=== PATIENT | female | born 2000 | race African-American/Black ===

== ENCOUNTER 2023-02-23 13:01 | Emergency (ER) | payer OTHER ==
[2023-02-23 13:15] VITALS: TEMP 97.9; BMI 33.5
[2023-02-23] MEDS ORDERED: ACETAMINOPHEN 1000 MG/100 ML BAG IVPB ONE (13:25)
[2023-02-23] MEDS ORDERED: SODIUM CHLORIDE 0.9% 500 ML INFUS.BAG IV ONE (13:25)
[2023-02-23] MEDS ORDERED: METOCLOPRAMIDE HCL INJECTION 10 MG/2 ML VIAL IVPUSH ONE (13:25)
[2023-02-23] MEDS ORDERED: ACETAMINOPHEN INJECTION 100 ML IVPB ONE (13:40)
[2023-02-23] MEDS ORDERED: METOCLOPRAMIDE HCL INJECTION 10 MG/2 ML VIAL ONE (13:40)
[2023-02-23 14:14] LABS: PH,URINE 5.5 (5.0-8.0); URINE APPEARANCE CLEAR; URINE BILIRUBIN NEGATIVE (NEGATIVE); URINE COLOR YELLOW; URINE GLUCOSE (UA) NEGATIVE (NEGATIVE); URINE KETONE 2+ (NEGATIVE); URINE LEUK ESTERASE NEGATIVE (NEGATIVE); URINE NITRITE NEGATIVE (NEGATIVE); URINE PROTEIN NEGATIVE (NEGATIVE); URINE UROBILINOGEN 0.2 mg/dL (0.2-1.0)
[2023-02-23 14:15] LABS: BASO % 0.8 % (0-2.0); EOS % 0.9 % (0-4.5); HEMATOCRIT 35.3 % (32.4-45.2); HEMOGLOBIN 11.3 GM/dL (10.7-15.3); MCH 25.8 pg (25.7-33.7); MEAN CELL VOLUME 80.5 fl (80-96); MEAN PLT VOLUME 9.9 fl (7.5-11.1); MONO % 4.2 % (3.8-10.2); NEUT % 69.1 % (42.8-82.8); PLATELET COUNT 217 10^3/uL (134-434); RBC 4.38 M/mm3 (3.60-5.2); RDW 14.6 % (11.6-15.6); WHITE BLOOD COUNT 10.6 K/mm3 (4.0-10.0)
[2023-02-23 14:35] LABS: POTASSIUM 4.8 mmol/L (3.5-5.1)
[2023-02-23 14:38] LABS: CALCIUM 9.7 mg/dL (8.5-10.1)
[2023-02-23 14:39] LABS: ALBUMIN 3.2 g/dl (3.4-5.0); BLOOD UREA NITROGEN 7.9 mg/dL (7-18); MAGNESIUM 1.8 mg/dL (1.8-2.4)
[2023-02-23 14:43] LABS: BILIRUBIN,TOTAL 0.3 mg/dL (0.2-1); CREATININE 0.4 mg/dL (0.55-1.3)
[2023-02-23 16:20] VITALS: BP 112/65; PULSE 81; RESP 19
== END 2023-02-23 16:40 | disposition home or self-care (01) ==
LOC: JER 13:01
PROC: 3E033NZ Introduction of Analgesics, Hypnotics, Sedatives into Peripheral Vein, Percutaneous Approach (ICD-10-PCS; principal; 2023-02-23)
PROC: 3E033GC Introduction of Other Therapeutic Substance into Peripheral Vein, Percutaneous Approach (ICD-10-PCS; 2023-02-23)
DX: O21.9 Vomiting of pregnancy, unspecified (principal); O99.891 Other specified diseases and conditions complicating pregnancy; R51.9 Headache, unspecified; Z3A.16 16 weeks gestation of pregnancy; Z20.822 Contact with and (suspected) exposure to COVID-19
CPT/HCPCS: 0241U-QW; 36415; 70450-TC; 80053; 81003; 83735; 85025; 87086; 93005; 93010; 99285-25

== ENCOUNTER 2023-03-10 10:21 | Emergency (ER) | payer OTHER ==
[2023-03-10 10:26] VITALS: BMI 33.5
[2023-03-10 11:44] LABS: BASO % 0.2 % (0-2.0); EOS % 1.2 % (0-4.5); HCG,QUALITATIVE URINE Positive; HEMOGLOBIN 11.4 GM/dL (10.7-15.3); LYMPH % 28.7 % (8-40); MCH 25.8 pg (25.7-33.7); MCHC 32.5 g/dl (32.0-36.0); MEAN CELL VOLUME 79.3 fl (80-96); MEAN PLT VOLUME 9.4 fl (7.5-11.1); NEUT % 63.9 % (42.8-82.8); PLATELET COUNT 214 10^3/uL (134-434); RBC 4.42 M/mm3 (3.60-5.2); RDW 14.7 % (11.6-15.6); URINE APPEARANCE CLEAR; URINE BILIRUBIN NEGATIVE (NEGATIVE); URINE COLOR YELLOW; URINE GLUCOSE (UA) NEGATIVE (NEGATIVE); URINE KETONE TRACE (NEGATIVE); URINE LEUK ESTERASE NEGATIVE (NEGATIVE); URINE NITRITE NEGATIVE (NEGATIVE); URINE PROTEIN NEGATIVE (NEGATIVE); WHITE BLOOD COUNT 7.3 K/mm3 (4.0-10.0)
[2023-03-10 12:14] LABS: POTASSIUM 3.7 mmol/L (3.5-5.1)
[2023-03-10 12:17] LABS: ALBUMIN 2.9 g/dl (3.4-5.0); BLOOD UREA NITROGEN 9.5 mg/dL (7-18)
[2023-03-10 12:20] LABS: CREATININE 0.5 mg/dL (0.55-1.3)
[2023-03-10 12:21] LABS: BILIRUBIN,TOTAL 0.2 mg/dL (0.2-1); TOT PROT 6.3 g/dl (6.4-8.2)
[2023-03-10 13:29] VITALS: BP 123/76; PULSE 96; RESP 18; TEMP 98.9
[2023-03-10] MEDS ORDERED: SODIUM CHLORIDE 0.9% 500 ML INFUS.BAG IV ONE (13:31)
== END 2023-03-10 15:24 | disposition home or self-care (01) ==
LOC: JER 10:21
DX: O21.9 Vomiting of pregnancy, unspecified (principal); O99.892 Other specified diseases and conditions complicating childbirth; R19.7 Diarrhea, unspecified; R51.9 Headache, unspecified; Z3A.17 17 weeks gestation of pregnancy
CPT/HCPCS: 36415; 80053; 81003; 83690; 84703; 85025; 87086; 99283-25

== ENCOUNTER 2023-03-29 11:48 | Emergency (ER) | payer OTHER ==
[2023-03-29] MEDS ORDERED: LACTATED RINGERS SOLUTION 1000 ML INFUS.BAG IV ONE (12:45)
[2023-03-29 13:22] VITALS: BMI 33.8
[2023-03-29 13:24] LABS: URINE APPEARANCE CLEAR; URINE BILIRUBIN NEGATIVE (NEGATIVE); URINE COLOR YELLOW; URINE GLUCOSE (UA) NEGATIVE (NEGATIVE); URINE KETONE 2+ (NEGATIVE); URINE LEUK ESTERASE NEGATIVE (NEGATIVE); URINE NITRITE NEGATIVE (NEGATIVE); URINE PROTEIN NEGATIVE (NEGATIVE)
[2023-03-29] MEDS ORDERED: ACETAMINOPHEN 1000 MG/100 ML BAG IVPB ONE (13:24)
[2023-03-29 13:33] LABS: HCG,QUALITATIVE URINE Positive
[2023-03-29] MEDS ORDERED: ACETAMINOPHEN INJECTION 100 ML IVPB ONE (13:52)
[2023-03-29 14:02] LABS: BASO % 1.3 % (0-2.0); EOS % 0.9 % (0-4.5); HEMATOCRIT 35.8 % (32.4-45.2); HEMOGLOBIN 11.1 GM/dL (10.7-15.3); LYMPH % 24.8 % (8-40); MCH 25.5 pg (25.7-33.7); MCHC 31.1 g/dl (32.0-36.0); MEAN CELL VOLUME 82.1 fl (80-96); MEAN PLT VOLUME 10.1 fl (7.5-11.1); MONO % 5.6 % (3.8-10.2); NEUT % 67.4 % (42.8-82.8); PLATELET COUNT 214 10^3/uL (134-434); RBC 4.35 M/mm3 (3.60-5.2); RDW 14.9 % (11.6-15.6); WHITE BLOOD COUNT 10.4 K/mm3 (4.0-10.0)
[2023-03-29 14:08] LABS: INR 1.01 (0.83-1.09); PROTHROMBIN TIME (PATIENT) 11.7 SEC (9.7-13.0)
[2023-03-29 14:11] LABS: ACTIVATED PTT 29.1 SECONDS (25.2-36.5)
[2023-03-29 14:25] LABS: POTASSIUM 4.1 mmol/L (3.5-5.1)
[2023-03-29 14:28] LABS: CALCIUM 9.6 mg/dL (8.5-10.1)
[2023-03-29 14:29] LABS: BLOOD UREA NITROGEN 9.6 mg/dL (7-18)
[2023-03-29 14:32] LABS: CREATININE 0.5 mg/dL (0.55-1.3)
[2023-03-29 14:33] LABS: BILIRUBIN,TOTAL 0.6 mg/dL (0.2-1); TOT PROT 6.5 g/dl (6.4-8.2)
[2023-03-29 18:24] VITALS: BP 116/61; PULSE 88; RESP 18; TEMP 99.2
== END 2023-03-29 18:52 | disposition home or self-care (01) ==
LOC: JER 11:48
PROC: 3E033NZ Introduction of Analgesics, Hypnotics, Sedatives into Peripheral Vein, Percutaneous Approach (ICD-10-PCS; principal; 2023-03-29)
DX: O26.892 Other specified pregnancy related conditions, second trimester (principal); R10.9 Unspecified abdominal pain; O21.9 Vomiting of pregnancy, unspecified; Z3A.21 21 weeks gestation of pregnancy
CPT/HCPCS: 36415; 76705-TC; 76815; 80053; 81003; 83690; 84703; 85025; 85610; 85730; 86850; 86900; 86901; 87086; 99284-25

== ENCOUNTER 2023-07-21 02:40 | Inpatient (IN) | payer OTHER ==
[2023-07-21] MEDS: ELECTROLYTE-148 SOLN 500 ML IV ONE (04:15)
[2023-07-21 04:52] LABS: EPI CELLS 11 /uL (0-25.1); HYALINE CASTS 0 /uL (0-3.1); URINE APPEARANCE CLEAR; URINE BACTERIA 45 /uL (0-1359); URINE BILIRUBIN NEGATIVE (NEGATIVE); URINE COLOR YELLOW; URINE GLUCOSE (UA) NEGATIVE (NEGATIVE); URINE KETONE NEGATIVE (NEGATIVE); URINE LEUK ESTERASE NEGATIVE (NEGATIVE); URINE NITRITE NEGATIVE (NEGATIVE); URINE PROTEIN 2+ (NEGATIVE); URINE RBC 5 /uL (0-23.9); URINE UROBILINOGEN 0.2 mg/dL (0.2-1.0); URINE WBC 5 /uL (0-25.8)
[2023-07-21] MEDS ORDERED: ELECTROLYTE-148 SOLN 500 ML IV SCH ×2 (05:15→06:15)
[2023-07-21 07:04] LABS: RETICULOCYTES 1.91 % (0.5-1.5)
[2023-07-21 07:27] LABS: URIC ACID 5.7 mg/dL (2.6-7.2)
[2023-07-21] MEDS: ELECTROLYTE-148 SOLN 1,000 ML IV SCH (09:40)
[2023-07-21 10:58] LABS: BASO % 0.3 % (0-2.0); EOS % 1.1 % (0-4.5); HEMATOCRIT 32.6 % (32.4-45.2); HEMOGLOBIN 10.6 GM/dL (10.7-15.3); LYMPH % 23.3 % (8-40); MCHC 32.6 g/dl (32.0-36.0); MEAN CELL VOLUME 82.8 fl (80-96); MEAN PLT VOLUME 9.6 fl (7.5-11.1); MONO % 6.3 % (3.8-10.2); PLATELET COUNT 158 10^3/uL (134-434); RBC 3.94 M/mm3 (3.60-5.2); RDW 15.5 % (11.6-15.6); WHITE BLOOD COUNT 8.2 K/mm3 (4.0-10.0)
[2023-07-21 11:06] LABS: INR 0.95 (0.83-1.09)
[2023-07-21 11:09] LABS: ACTIVATED PTT 26.6 SECONDS (25.2-36.5)
[2023-07-21 11:20] LABS: POTASSIUM 4.1 mmol/L (3.5-5.1)
[2023-07-21 11:22] LABS: BLOOD UREA NITROGEN 9.4 mg/dL (7-18); CALCIUM 9.8 mg/dL (8.5-10.1)
[2023-07-21 11:25] LABS: CREATININE 0.6 mg/dL (0.55-1.3)
[2023-07-21] MEDS: DINOPROSTONE 10 MG VAGINAL SUPPOSITORY VG ONE (12:40)
[2023-07-21 15:45] VITALS: BMI 38.5
[2023-07-21 18:32] LABS: HIV INTERPRETATION NEGATIVE (NEGATIVE)
[2023-07-22] MEDS: OXYTOCIN 30 UNITS in 0.9% NS 30 UNIT/500 ML INFUS.BAG IVPB SCH (01:45)
[2023-07-22] MEDS ORDERED: PROMETHAZINE HCL 25 MG/1 ML VIAL ONE (19:44)
[2023-07-22] MEDS ORDERED: BUTORPHANOL TARTRATE 2 MG/ML VIAL ONE (19:44)
[2023-07-22] MEDS: BUTORPHANOL TARTRATE 1 MG/ML VIAL IVPUSH PRN (19:50)
[2023-07-22] MEDS: PROMETHAZINE HCL 25 MG/1 ML VIAL IVPB PRN (19:50)
[2023-07-22] MEDS ORDERED: FENTANYL/BUPIVACAINE/NS/PF - PCEA - 50 ML DISP.SYRIN EP ONE (23:21)
[2023-07-23] MEDS: FENTANYL/BUPIVACAINE/NS/PF - PCEA - 50 ML DISP.SYRIN EP SCH
[2023-07-23] MEDS ORDERED: NALOXONE HCL 0.4 MG/ML VIAL IVPUSH PRN (00:30)
[2023-07-23] MEDS ORDERED: LIDOCAINE HCL 1% PRESERVATIVE FREE - 30ML VIAL ONE (03:13)
[2023-07-23] MEDS ORDERED: OXYTOCIN 20 UNITS in 0.9% NS 20 UNIT/1,000 ML INFUS.BAG IV ONE (03:13)
[2023-07-23] MEDS: OXYTOCIN 20 UNITS in 0.9% NS 20 UNIT/1,000 ML INFUS.BAG IV SCH (03:45)
[2023-07-23] MEDS ORDERED: LABETALOL HCL 200 MG TABLET (FP) ONE ×2 (04:33→12:33)
[2023-07-23] MEDS: LABETALOL HCL 200 MG TABLET (FP) PO SCH (04:35)
[2023-07-23 04:45] LABS: CORD HCO3 21.4 mmHg (20-29); CORD PCO2 40.2 mmHg (30-78); CORD pH 7.344 (7.14-7.44)
[2023-07-23 04:46] LABS: CORD BASE EXCESS -6.7 mmol/L (0-2); CORD HCO3 22.5 mmHg (20-29); CORD PCO2 61.2 mmHg (30-78); CORD pH 7.184 (7.14-7.44)
[2023-07-23] MEDS ORDERED: WITCH HAZEL 50% (TUCKS) 40 PAD/JAR PAD TP PRN (04:55)
[2023-07-23] MEDS ORDERED: BISACODYL 10 MG SUPP.RECT RC PRN (04:55)
[2023-07-23] MEDS ORDERED: BENZOCAINE 28 GM HEMORRHOIDAL OINTMENT TP PRN (04:55)
[2023-07-23] MEDS ORDERED: ACETAMINOPHEN 325 MG TABLET (FP) PO PRN (04:55)
[2023-07-23] MEDS ORDERED: METHYLERGONOVINE MALEATE 0.2 MG/1 ML AMP IM PRN (04:55)
[2023-07-23] MEDS ORDERED: BENZOCAINE 20% 57 GM BOTTLE TP PRN (04:55)
[2023-07-23] MEDS ORDERED: oxyCODONE HCL 5 MG TABLET PO PRN (04:55)
[2023-07-23] MEDS ORDERED: MAGNESIUM 4GM/H20 - 4 GM/100 ML IVPB IVPB ONE (06:06)
[2023-07-23] MEDS: MAGNESIUM 4GM/H20 - 4 GM/100 ML IVPB IVPB ONE (06:10)
[2023-07-23] MEDS: MAGNESIUM SULFATE 20GM/500ML - 20 GM/500 ML INFUS.BAG IVPB SCH (06:40)
[2023-07-23] MEDS ORDERED: MAGNESIUM SULFATE 20GM/500ML - 20 GM/500 ML INFUS.BAG ONE (06:41)
[2023-07-23] MEDS: FERROUS SO4 325 MG TABLET (FP) PO SCH (09:00)
[2023-07-23] MEDS ORDERED: FERROUS SO4 325 MG TABLET (FP) ONE ×3 (09:37→18:10)
[2023-07-23] MEDS ORDERED: PRENATAL VITAMINS W/ FOLIC ACID TABLET (FP) PO ONE (10:20)
[2023-07-23] MEDS: PRENATAL VITAMINS W/ FOLIC ACID TABLET (FP) PO SCH (10:20)
[2023-07-23] MEDS: IBUPROFEN 600 MG TABLET (FP) PO PRN (19:14)
[2023-07-24 07:14] LABS: BASO % 0.5 % (0-2.0); EOS % 0.6 % (0-4.5); HEMATOCRIT 26.9 % (32.4-45.2); HEMOGLOBIN 8.8 GM/dL (10.7-15.3); LYMPH % 20.5 % (8-40); MCH 27.1 pg (25.7-33.7); MCHC 32.7 g/dl (32.0-36.0); MEAN CELL VOLUME 82.9 fl (80-96); MEAN PLT VOLUME 9.5 fl (7.5-11.1); MONO % 6.6 % (3.8-10.2); NEUT % 71.8 % (42.8-82.8); PLATELET COUNT 146 10^3/uL (134-434); RBC 3.25 M/mm3 (3.60-5.2); RDW 16.1 % (11.6-15.6); WHITE BLOOD COUNT 12.5 K/mm3 (4.0-10.0)
[2023-07-24] MEDS ORDERED: SENNOSIDES/DOCUSATE COMBO (SENNA PLUS) TABLET (UD) PO PRN (22:00)
[2023-07-25 08:53] VITALS: BP 145/85; PULSE 96; RESP 20; TEMP 98
== END 2023-07-25 12:30 | disposition home or self-care (01) | DRG 560 ==
LOC: JDEL 02:40 → JLDR 09:25 → J3W 07-23 18:20
PROVIDERS: ADMIT Obstetrics & Gynecology; ATTEND Obstetrics & Gynecology
PROC: 3E0P7VZ Introduction of Hormone into Female Reproductive, Via Natural or Artificial Opening (ICD-10-PCS; 2023-07-21)
PROC: 10E0XZZ Delivery of Products of Conception, External Approach (ICD-10-PCS; principal; 2023-07-23)
PROC: 0KQM0ZZ Repair Perineum Muscle, Open Approach (ICD-10-PCS; 2023-07-23)
PROC: 0W8NXZZ Division of Female Perineum, External Approach (ICD-10-PCS; 2023-07-23)
DX: O70.1 Second degree perineal laceration during delivery (principal); O36.5930 Maternal care for other known or suspected poor fetal growth, third trimester, not applicable or unspecified; Z3A.37 37 weeks gestation of pregnancy; Z37.0 Single live birth
CPT/HCPCS: 36415; 36600; 80048; 81003; 82570; 82803; 82977; 83010; 83735; 84156; 84450; 84460; 84550; 85025; 85032; 85045; 85610; 85730; 86780; 86850; 86900; 86901; 87086; 87340; 87389